=== PATIENT | male | born 1960 | race Two or more races ===

== ENCOUNTER → 2018-08-10 | Outpatient (CLI) | payer BC ==
--- NOTE | 2018-08-10 09:08 | PCVCIMAG ---
APPROVED REPORT Study performed: 08/10/2018 07:44:16 EXAM: Comprehensive 2D, Doppler, and color-flow Echocardiogram Patient Location: Echo lab Status: routine BSA: 2.22 HR: 75 bpmBP: 130/84 mmHg Rhythm: NSR Other Information Study Quality: Adequate Risk Factors: Cardiac Risk Factors: HTN Indications Dyspnea Chest Pain 2D Dimensions IVSd: 11.93 (7-11mm) LVDd: 41.97 mm PWd: 9.33 (7-11mm) LVDs: 29.06 (25-40mm) Left Atrium: 43.21 (27-40mm) Aortic Root: 27.79 mm LV Single Plane 4CH: 51.57 % LV Single Plane 2CH: 50.20 % Biplane EF: 52.3 % Volumes Left Atrial Volume (Systole) Single Plane 4CH: 56.14 mLSingle Plane 2CH: 52.96 mL LA ESV Index: 25.00 mL/m2 Aortic Valve AoV Peak Isaac.: 1.45 m/s AO Peak Gr.: 8.45 mmHgLVOT Max P.06 mmHg LVOT Max V: 0.87 m/s Mitral Valve E/A Ratio: 1.1 MV Decel. Time: 236.95 ms MV E Max Isaac.: 0.52 m/s MV A Isaac.: 0.48 m/s IVRT: 83.04 ms Pulmonary Valve PV Peak Isaac.: 1.04 m/sPV Peak Gr.: 4.29 mmHg Pulmonary Vein P Vein S: 0.23 m/sP Vein A: 0.27 m/s P Vein D: 0.28 m/sP Vein A Dur.: 138.4 msec P Vein S/D Ratio: 0.82 Tricuspid Valve TR Peak Isaac.: 2.31 m/s TR Peak Gr.: 21.33 mmHg Left Ventricle The left ventricle is normal size. There is normal LV segmental wall motion. There is normal left ventricular wall thickness. Left ventricular systolic function is normal. The left ventricular ejection fraction is within the normal range. LVEF is 50-55%. Grade II - pseudonormal filling dynamics. Right Ventricle The right ventricle is normal size. The right ventricular systolic function is normal. Atria The left atrium size is normal. The right atrium size is normal. Aortic Valve The aortic valve is normal in structure. No aortic regurgitation is present. There is no aortic valvular stenosis. Mitral Valve The mitral valve is normal in structure. Trace mitral regurgitation. No evidence of mitral valve stenosis. Tricuspid Valve The tricuspid valve is normal in structure. Trace tricuspid regurgitation with PAP of 28 mmHg. Pulmonic Valve The pulmonary valve is normal in structure. There is no pulmonic valvular regurgitation. Great Vessels The aortic root is normal in size. IVC is normal in size and collapses >50% with inspiration. Pericardium There is no pericardial effusion. There is no pleural effusion. <Conclusion> The left ventricle is normal size. LVEF is 50-55%. The aortic valve is normal in structure. The mitral valve is normal in structure. Trace mitral regurgitation. The tricuspid valve is normal in structure. Trace tricuspid regurgitation with PAP of 28 mmHg. The pulmonary valve is normal in structure. There is no pericardial effusion.
--- NOTE | 2018-08-11 15:59 | PCVCIMAG ---
APPROVED REPORT Imaging Protocol: Rest Tc-99m/Stress Tc-99m 1 day Study performed: 08/10/2018 08:39:18 Indication: Abnormal EKG, Chest pain Patient Location: Out-Patient Stress Nurse: Mindi Manriquez RN, Melly Escalante RN [place] Tech:Marcia Reagan [facility] Ht: 5 ft 8 in Wt: 244 lbs BSA: 2.22 m2 HR: 80 bpm BP: 153/74 mmHg BMI: 37.09 Rhythm: SR, T Wave Abn Medical History Medical History: HTN, Hyperlipidemia Medications: Aspirin, atorvastatin, farxiga, insulin, losartan, actos, singulair (held all this AM) Allergies: No known drug allergies Cardiac Risk Factors: Age Pretest Chest Pain Characteristics: No chest pain Resting Data Rest SPECT myocardial perfusion imaging was performed in supine position 45 minutes following the intravenous injection of 13.6 mCi of Tc-99m Sestamibi. Time of rest injection: 829 Date: 08/10/2018 Administration Route: IV Administration Site: Left Hand Exercise Stress At peak stress, the patient was injected intravenously with 44.8mCi of Tc-99m Sestamibi. Time of stress injection: 939 Date: 08/10/2018 Administration Route: IV Administration Site: Left Hand Patient continued to exercise for 30 minute(s). The images were gated to evaluate regional wall motion and calculate left ventricular ejection fraction. Stress Test Details Stress Test: Exercise stress testing was performed using a Lenin protocol. HRMax Heart Rate (APMHR): 160 bpm Resting HR: 80 bpmTarget HR (85% APMHR): 136 bpm Max HR Achieved: 155 bpm % of APMHR: 96 Recovery HR: 100 bpm BP Resting BP: 1583/74 mmHg Recovery BP: 156/60 mmHg ECG Resting ECG: SR, T Wave Abn Stress ECG: ST, T Wave Abn Recovery ECG: ST, T Wave Abn Clinical Reason for Termination: Dyspnea, Fatigue Stress Symptoms: Dyspnea Exercise duration: 10 min 51 sec Exercise capacity: 13.7 METs Symptoms resolved during recovery. Stress ECG Conclusion 1 Subjectively negative for ischemia 2.Electrocardiographically negative for ischemia 3.Satisfactory functional capacity Study Data Post stress, the left ventricular ejection was 76%.. SSS: 0 SRS: 0 SDS: 0 TID = 0.73. Perfusion There is a medium area of moderately reduced uptake in the basal and mid segment of the inferior wall which is seen on the stress images as well as the resting images. This area thickens and moves normally and is most consistent with attenuation artifact. Wall Motion Normal left ventricular wall motion. Nuclear Conclusion ECG Findings: negative for ischemia Clinical Findings: negative for ischemia Nuclear Findings: negative for ischemia Exercise Capacity: normal Left Ventricular Function: normal 1 Low Risk Study <Conclusion> 1 Subjectively negative for ischemia 2.Electrocardiographically negative for ischemia 3.Satisfactory functional capacity
== END | disposition home or self-care (01) ==
LOC: PCVCIMAG 08:08
PROVIDERS: ATTEND Internal Medicine
DX: I10 Essential (primary) hypertension (principal); R07.9 Chest pain, unspecified; R94.31 Abnormal electrocardiogram [ECG] [EKG]
CPT/HCPCS: 78452; 93017; 93306; A9500